=== PATIENT | female | born 1970 | race Caucasian/White ===

== ENCOUNTER 2021-11-20 06:59 | Outpatient (CLI) | payer BC, OTHER ==
[2021-11-21] MEDS ORDERED: LOSA100T31 PO (14:53)
[2021-11-21] MEDS ORDERED: HYDR-4209 PO (17:10)
== END 2021-11-20 23:59 | disposition home or self-care (01) ==
LOC: LAB 06:59
PROVIDERS: ATTEND Obstetrics & Gynecology
DX: Z20.822 Contact with and (suspected) exposure to COVID-19 (principal)

== ENCOUNTER 2021-11-21 06:07 | Day surgery (SDC) | payer BC, OTHER ==
[~2021-11-21] VITALS: Ht 160 cm; Wt 63.5 kg
[2021-11-21] MEDS ORDERED: CEFAZOLIN 50 ML IV ONE (06:52)
[2021-11-21 07:16] LABS: *URINE HCG, QUAL NEGATIVE (NEGATIVE)
[2021-11-21] MEDS ORDERED: PROPOFOL 200 MG/20 ML BOTTLE ONE (07:34)
[2021-11-21] MEDS ORDERED: FENTANYL CITRATE 100 MCG/2 ML AMPUL ONE ×2 (07:34→09:48)
[2021-11-21] MEDS ORDERED: ROCURONIUM BROMIDE 50 MG/5 ML VIAL ONE (07:34)
[2021-11-21] MEDS ORDERED: MIDAZOLAM HCL 2 MG/2 ML VIAL ONE (07:34)
[2021-11-21] MEDS ORDERED: BUPIVACAINE/EPI PF 0.5% 10 ML VIAL ONE (07:38)
[2021-11-21] MEDS ORDERED: CEFAZOLIN 1 G VIAL ONE (09:10)
[2021-11-21] MEDS ORDERED: LIDOCAINE-MPF 2% 5 ML VIAL ONE (09:10)
[2021-11-21] MEDS ORDERED: PHENYLEPHRINE 10 MG/1 ML VIAL ONE (09:10)
[2021-11-21] MEDS ORDERED: EPHEDRINE SULFATE 50 MG/ML AMPUL ONE (09:10)
[2021-11-21] MEDS ORDERED: METOCLOPRAMIDE HCL 10 MG/2 ML VIAL ONE (09:10)
[2021-11-21] MEDS ORDERED: GLYCOPYRROLATE 0.2 MG/ML VIAL ONE (09:10)
[2021-11-21] MEDS ORDERED: KETOROLAC TROMETHAMINE 30 MG INJ ONE (09:10)
[2021-11-21] MEDS ORDERED: ONDANSETRON 4 MG/2 ML VIAL ONE (09:10)
[2021-11-21 11:53] VITALS: BP 121/49
[2021-11-21] MEDS ORDERED: IV LACTATED RINGERS SOLUTION 1,000 ML IV PRN (12:30)
[2021-11-21] MEDS ORDERED: ONDANSETRON 4 MG/2 ML VIAL IV PRN (12:45)
--- NOTE | 2021-11-21 12:55 | NUR ---
Arrived on med-surg floor via bed stretcher at 1040 am accompanied by 2 OR nurses s/p laparoscopic bso report from Marcos Galeana. Awake and oriented x4, denies sob or chest pain, comfortable on room air. Abdomen laparoscopic sites with 3 intact bandaids, no bleeding noted. Singer removed per MD order. Patient was assisted to the bathroom noted with steady gait but only urinated a little bit. IV hydrated started as ordered. Bedside swallow eval done and no coughing or sx of aspiration noted. Dr. Gonsalez's orders are noted. Per Rn, Dr. Gonsalez will call Dr. Huitron for report also. Belongings intact. Needs attended. Call light in reach.
[2021-11-21] MEDS: HYDROCODONE/APAP 5-325MG TABLET PO PRN ×2 (13:31→17:33)
--- NOTE | 2021-11-21 14:30 | NUR ---
tolerated lunch no nausea or vomiting, ambulates to the bathroom steady gait, urinated yellow urine no hematuria, no dysuria noted. c/o abdominal pain states relieved by norco.
[2021-11-21] MEDS ORDERED: LOSA100T31 PO (14:53)
[2021-11-21 17:01] VITALS: BP 141/79
[2021-11-21] MEDS ORDERED: HYDR-4209 PO (17:10)
--- NOTE | 2021-11-21 18:23 | NUR ---
discharged to home. discharge instructions discussed with patient and she verbalized understanding. states she already has a follow up appt with dr. epps next week. after care instructions discussed with patient and stated understanding. iv and id band removed. left facility accompanied by sister via private care in stable condition with all belongings intact. Addendum: 11/21/21 at 1855 by ANTHONY LUA RN written narcotic prescription was given to patient upon discharge. she stated relief of pain.
[2021-11-22] MEDS ORDERED: LOSARTAN POTASSIUM 50 MG TABLET PO SCH (09:00)
== END 2021-11-21 19:00 | disposition home or self-care (01) ==
LOC: DS 06:07 → UNDOADMIN 11:49 → MEDSURG3 11:49 → UNDODISIN 18:05 → DS 19:00
PROVIDERS: ATTEND Obstetrics & Gynecology
DX: N72 Inflammatory disease of cervix uteri (principal); I10 Essential (primary) hypertension; Z80.41 Family history of malignant neoplasm of ovary; Z20.822 Contact with and (suspected) exposure to COVID-19; Z79.899 Other long term (current) drug therapy; Z98.890 Other specified postprocedural states
CPT/HCPCS: 58661; 71045; 84703; 87081; 93005; J0690 ×2; J1885; J2250; J2370; J2405; J2765; J3010; J3490 ×5; J7120 ×2; A4663; G0378

== ENCOUNTER 2022-05-11 07:42 | Outpatient (CLI) | payer BC, OTHER ==
[~2022-05-11 07:42] MED LIST: LOSA100T31 PO
== END 2022-05-11 23:59 | disposition home or self-care (01) ==
LOC: LAB 07:42
PROVIDERS: ATTEND Internal Medicine Gastroenterology
DX: Z01.812 Encounter for preprocedural laboratory examination (principal); Z20.822 Contact with and (suspected) exposure to COVID-19

== ENCOUNTER 2022-05-14 07:19 | Day surgery (SDC) | payer BC, OTHER ==
[2022-05-14] MEDS ORDERED: LIDOCAINE-MPF 2% 5 ML VIAL IJ ONE (07:20)
[2022-05-14] MEDS ORDERED: PROPOFOL 200 MG/20 ML BOTTLE IV ONE (07:20)
[2022-05-14 08:10] LABS: HEMATOCRIT 44.5 % (31.2-41.9); MEAN CORPUSCULAR VOLUME 87.6 fL (75.5-95.3); PLATELET COUNT (AUTO) 279 K/uL (179-408)
[2022-05-14 08:15] LABS: *BILIRUBIN,URIN NEGATIVE (NEGATIVE); *BLOOD, URINE 2+ (NEGATIVE); *CLARITY,URINE CLEAR (CLEAR); *COLOR,URINE YELLOW (YELLOW); *KETONES,URINE TRACE (NEGATIVE); *UROBILINOGEN,URINE 0.2 E.U./dl (NORMAL); LEUKOCYTE ESTERASE ,URINE NEGATIVE (NEGATIVE); NITRITE, URINE NEGATIVE (NEGATIVE); PH,URINE 5.5 (5.0-8.0); UGLUCOSE NEGATIVE (NEGATIVE)
[2022-05-14 08:16] LABS: CREATININE 0.8 mg/dL (0.6-1.3)
[2022-05-14 10:00] LABS: BACTERIA,URINE NONE SEEN /HPF (NONE SEEN); SQUAMOUS EPITHELIAL CELL,UR FEW /HPF (NONE SEEN); URINE AMORPHOUS URATE MANY /HPF; WBC,URINE 0-3 /HPF (0-3)
== END 2022-05-14 10:05 | disposition home or self-care (01) ==
LOC: DS 07:19
PROVIDERS: ATTEND Internal Medicine Gastroenterology
DX: Z12.11 Encounter for screening for malignant neoplasm of colon (principal); K64.8 Other hemorrhoids; K57.30 Diverticulosis of large intestine without perforation or abscess without bleeding; K63.89 Other specified diseases of intestine; I10 Essential (primary) hypertension; Z87.440 Personal history of urinary (tract) infections; Z79.899 Other long term (current) drug therapy; Z79.01 Long term (current) use of anticoagulants; Z98.890 Other specified postprocedural states; Z72.89 Other problems related to lifestyle
CPT/HCPCS: 45378; 80048; 81001; 85025; 85730; 36415; 93005; J3490; J7040; A4663